=== PATIENT | female | born 2000 | race African-American/Black ===

== ENCOUNTER 2025-02-24 21:35 | Emergency (ER) | payer SELFPAY ==
[~2025-02-24] VITALS: Ht 167.6 cm; Wt 104.8 kg
[2025-02-24 21:42] VITALS: TEMP 98.6
[2025-02-24] MEDS: SODIUM CHLORIDE 0.9% 1000ML 1,000 ML IV STA (21:54)
[2025-02-24] MEDS: ONDANSETRON HCL INJ 2MG/ML 2ML 2 MG/ML VIAL IV STA (21:54)
[2025-02-24 22:08] VITALS: PULSE 71; RESP 19
[2025-02-24 22:11] LABS: BASOPHILS % 0.2 % (0.0-1.0); EOSINOPHILS # (AUTO) 0.2 (0.0-0.4); EOSINOPHILS % 1.8 % (0.0-6.0); HEMATOCRIT 35.1 % (34.2-44.1); LYMPHOCYTES # (AUTO) 2.8 (1.0-3.2); LYMPHOCYTES % 27.7 % (18.0-39.1); MEAN CORPUSCULAR HEMOGLOBIN 24.6 pg (28-32); MEAN CORPUSCULAR HGB CONC 31.3 g/dL (31-35); MEAN CORPUSCULAR VOLUME 78.3 fL (81-99); NEUTROPHILS # (AUTO) 6.1 (2.1-6.9); NEUTROPHILS % 59.9 % (38.7-80.0); PLATELET COUNT 266 x10e3/uL (140-360); RED BLOOD COUNT 4.48 x10e6/uL (3.6-5.1); RED CELL DISTRIBUTION WIDTH 13.6 % (11.7-14.4); WHITE BLOOD COUNT 10.14 x10e3/uL (4.8-10.8)
[2025-02-24 22:21] LABS: BILIRUBIN,URINE NEGATIVE (NEGATIVE); CLARITY,URINE SL CLOUDY (CLEAR); COLOR,URINE YELLOW (YELLOW); GLUCOSE, URINE NEGATIVE (NEGATIVE); KETONES,URINE TRACE (NEGATIVE); LEUKOCYTE ESTERASE ,URINE NEGATIVE (NEGATIVE); NITRITE,URINE NEGATIVE (NEGATIVE); PH,URINE 7 (5 - 7); PROTEIN,URINE DIPSTICK TRACE (NEGATIVE); URINE UROBILINOGEN 1 mg/dL (0.2 - 1)
[2025-02-24 22:22] LABS: PREGNANCY TEST, URINE NEGATIVE (NEGATIVE)
[2025-02-24 22:36] LABS: ALBUMIN 3.8 g/dL (3.5-5.0); ALBUMIN/GLOBULIN RATIO 1.1 (0.8-2.0); BILIRUBIN,TOTAL 0.2 mg/dL (0.2-1.2); CREATININE, SERUM 0.77 mg/dL (0.57-1.11); TOTAL PROTEIN 7.2 g/dL (6.5-8.1)
[2025-02-24 22:58] LABS: CORONAVIRUS COVID-19 AG NEGATIVE (NEGATIVE); INFLUENZA A AG NEGATIVE (NEGATIVE); INFLUENZA B AG NEGATIVE (NEGATIVE); STREPTOCOCCUS GRP A ANTIGEN NEGATIVE (NEGATIVE)
[2025-02-24 23:03] LABS: BACTERIA,URINE MANY /HPF; EPITHELIAL CELLS,URINE MODERATE /LPF; RBC,URINE 0-5 /HPF (0-5)
[2025-02-25] MEDS ORDERED: IOPAMIDOL 370 MG/ML 100 ML INFUS..BTL INJ ONE (00:15)
[2025-02-25] MEDS ORDERED: PEPCID20 MG PO (00:35)
[2025-02-25 00:49] VITALS: BP 137/96; PULSE 69; RESP 15; TEMP 98; O2SAT 99
== END 2025-02-25 00:50 | disposition home or self-care (01) ==
LOC: ER 21:45
DX: R10.13 Epigastric pain (principal); R11.2 Nausea with vomiting, unspecified; R53.81 Other malaise; E28.2 Polycystic ovarian syndrome; Z11.52 Encounter for screening for COVID-19
CPT/HCPCS: 36415; 74177; 80053; 81001; 81025; 83518; 83690; 85025; 87070; 87428; 99284; J2405; J7030; Q9967